=== PATIENT | male | born 1990 | race Caucasian/White ===

== ENCOUNTER 2016-09-27 17:57 | Emergency (ER) | payer MEDICAID ==
[~2016-09-27] VITALS: Ht 175.3 cm; Wt 86.0 kg
[~2016-09-27 17:57] MED LIST: ALBU18HF INHALATION; ALBU8.5H3 INH; AMOX1TAB10 PO; HYDR-3498 PO; HYDR-906 PO; IBUP-1542 PO; IBUP800T25 PO; LORA1TAB PO; ONDA8TAB14 PO; no meds taken
[2016-09-27 18:07] VITALS: Ht 175.3 cm; Wt 86.0 kg
[2016-09-27] MEDS ORDERED: CLIN-73 PO (19:10)
[2016-09-27] MEDS ORDERED: IBUP800T25 PO (19:10)
--- NOTE | 2016-09-27 19:18 | ERD ---
ER Documentation Chief Complaint Date/Time DATE: 09/27/16 TIME: 19:14 Chief Complaint LT SIDE TOOTH PAIN AND SWELLING X 3 DAYS HPI 26-year-old male with a past medical history of dental infections presents the ED complaining of the same dental infection that he has had in June 2016. States that the same #19 tooth is still decayed and has not followed up with the dentist. States that his gums started to swell up 2 days ago. States that he has been taking ibuprofen for pain. Denies any fever, chills, dysphagia, shortness of breath, wheezing, abdominal pain. States that he tried following up with a dentist however does not have insurance. ROS All systems reviewed and are negative except as per history of present illness. Medications Home Meds Active Scripts Ibuprofen* (Motrin*) 800 Mg Tab, 800 MG PO Q6, #30 TAB Prov:SANTOSH MADDOX PA-C 09/27/16 Clindamycin Hcl* (Clindamycin Hcl*) 300 Mg Capsule, 450 MG PO TID for 10 Days, CAP Prov:SANTOSH MADDOX PA-C 09/27/16 Albuterol Sulfate* (Ventolin HFA*) 18 Gm Hfa.aer.ad, 2 PUFF INHALATION Q4H, #1 INHALER Prov:CARLOS ALBERTO GRIFFIN 09/07/16 Ibuprofen* (Ibuprofen*) 600 Mg Tablet, 600 MG PO Q6 for 3 Days, TAB Prov:CARLOS ALBERTO GRIFFIN 09/07/16 Ibuprofen* (Motrin*) 600 Mg Tab, 600 MG PO Q6, #30 TAB Prov:SANTOSH MADDOX PA-C 08/22/16 Albuterol Sulfate* (Proair HFA*) 8.5 Gm Hfa.aer.ad, 2 PUFF INH Q4, #1 INHALER Prov:SANTOSH MADDOX PA-C 08/22/16 Lorazepam* (Lorazepam*) 1 Mg Tablet, 1 MG PO Q8, #10 TAB Prov:WILLIAM MCCONNELL MD 08/21/16 Ondansetron (Ondansetron Odt) 8 Mg Tab.rapdis, 8 MG PO Q6H Y for NAUSEA AND/OR VOMITING, #10 TAB Prov:WILLIAM MCCONNELL MD 08/21/16 Hydrocodone/Acetaminophen ([place] 5-325 Tablet) 1 Each Tablet, 1 TAB PO Q6H Y for PAIN, #20 TAB Prov:CARLOS ALBERTO GRIFFIN 07/01/16 Ibuprofen* (Motrin*) 600 Mg Tab, 600 MG PO Q6, #30 TAB Prov:JACOBINGRID PA-C 06/30/16 Hydrocodone/Acetaminophen ([place] 5-325 Tablet) 1 Each Tablet, 1 EACH PO Q6, #6 TAB Prov:JACOBINGRID PA-C 06/30/16 Amoxicillin/Potassium Clav (Amox-Clav 875-125 mg Tablet) 875-125 mg Tab, 1 TAB PO BID for 7 Days, #14 TAB Prov:JACOBINGRID PA-C 06/30/16 Ibuprofen* (Motrin*) 600 Mg Tab, 600 MG PO Q6, #30 TAB Prov:SANTOSH MADDOX PA-C 06/28/16 Hydrocodone Bit-Acetaminophen* ([place]augan*) 5-325 Mg Tab, 1 TAB PO Q6 Y for PAIN, # 20 TAB Prov:YOAN ARCE DO 02/20/16 Ibuprofen* (Motrin*) 800 Mg Tab, 800 MG PO Q6H Y for PAIN AND OR ELEVATED TEMP, #30 TAB Prov:YOAN ARCE DO 02/20/16 Reported Medications [no meds taken] No Conflict Check 04/21/12 Allergies Allergies: Coded Allergies: No Known Allergy (Unverified , 08/22/16) PMhx/Soc History of Surgery: No Anesthesia Reaction: No Hx Neurological Disorder: No Hx Respiratory Disorders: Yes (asthma) Hx Cardiac Disorders: No Hx Psychiatric Problems: No Hx Miscellaneous Medical Probl: No Hx Alcohol Use: Yes (social) Hx Substance Use: No Hx Tobacco Use: No Physical Exam Vitals Vital Signs Date Time Temp Pulse Resp B/P Pulse Ox O2 Delivery O2 Flow Rate FiO2 09/27/16 18:07 98.1 76 16 136/80 98 Physical Exam Const: [id number], well-nourished. In no acute distress. Head: Atraumatic, normocephalic Eyes: Normal Conjunctiva without injection. No purulent discharge. PERRL. EOMI ENT: Normal external ear. Ear canal without erythema. Tympanic membrane pearly [place] without effusion or bulging. Nasal canal clear with normal turbinates. Moist oropharynx without tonsillar exudates. Non-erythematous pharynx. Left # 19 tooth decay with slight surrounding edema. Slight left cheek edema with no erythema, hepatic streaking. Uvula midline. No drooling. No trismus. Patient is able to open and close his mouth. Neck: Full range of motion. No meningismus. No cervical lymphadenopathy. Resp: Clear to auscultation bilaterally. No wheezing, rhonchi, rales, or crackles. No accessory muscle use. No retractions. Cardio: Regular rate and rhythm. No murmurs, rubs or gallops. Abd: Soft, non tender, non distended. Normal bowel sounds. No palpable masses. No rebound tenderness. No guarding. Skin: No petechiae or rashes Back: No midline tenderness. No CVA tenderness. Ext: No cyanosis, or edema. Neur: Awake and alert. Psych: Normal Mood and Affect Procedures/MDM This is a 26-year-old male with a past medical history of dental infections presents the ED complaining of the same dental infection he had last year. Patient has not seen the dentist. Patient is afebrile nontoxic appearing. Patient has normal vital signs. Low suspicion for dental abscess. Patient does not have tenderness to palpation of tragus or mastoid. Low suspicion for otitis externa or mastoiditis. Patient's physical exam include lungs which were clear to auscultation and a normal pulse oximetry. Patient is speaking in full sentences. There is a low suspicion for pneumonia, epiglottitis, croup, viral/ strep pharyngitis, sinusitis, peritonsillar abscess, retropharyngeal abscess, meningitis, sepsis, acute abdomen, Chase's angina, or other emergent conditions. Discharge medications: Clindamycin, Ibuprofen Follow up with dentist in 1-2 days. Instructed patient to return to the ED sooner for any worsening symptoms. Patient's questions were answered. Patient understood and agreed with discharge plan. Patient discharged stable. Departure Diagnosis: Primary Impression: Chronic dental infection Condition: Stable Patient Instructions: Understanding Tooth Decay Referrals: COMM[facility]ITY [facility]INICS YOU HAVE RECEIVED A MEDICAL SCREENING EXAM AND THE RESULTS INDICATE THAT YOU DO NOT HAVE A CONDITION THAT REQUIRES URGENT TREATMENT IN THE EMERGENCY DEPARTMENT. FURTHER EVALUATION AND TREATMENT OF YOUR CONDITION CAN WAIT UNTIL YOU ARE SEEN IN YOUR DOCTORS OFFICE WITHIN THE NEXT 1-2 DAYS. IT IS YOUR RESPONSIBILITY TO MAKE AN APPOINTMENT FOR FOLOW-UP CARE. IF YOU HAVE A PRIMARY DOCTOR --you should call your primary doctor and schedule an appointment IF YOU DO NOT HAVE A PRIMARY DOCTOR YOU CAN CALL OUR PHYSICIAN REFERRAL HOTLINE AT IF YOU CAN NOT AFFORD TO SEE A PHYSICIAN YOU CAN CHOSE FROM THE FOLLOWING [facility] [address] [facility] [address] [facility] [address] [facility] [address] [facility] [address] [facility]. [facility] [address] [facility]. [facility] YOU HAVE RECEIVED A MEDICAL SCREENING EXAM AND THE RESULTS INDICATE THAT YOU DO NOT HAVE A CONDITION THAT REQUIRES URGENT TREATMENT IN THE EMERGENCY DEPARTMENT. FURTHER EVALUATION AND TREATMENT OF YOUR CONDITION CAN WAIT UNTIL YOU ARE SEEN IN YOUR DOCTORS OFFICE WITHIN THE NEXT 1-2 DAYS. IT IS YOUR RESPONSIBILITY TO MAKE AN APPOINTMENT FOR FOLOW-UP CARE. IF YOU HAVE A PRIMARY DOCTOR --you should call your primary doctor and schedule and appointment IF YOU DO NOT HAVE A PRIMARY DOCTOR YOU CAN CALL OUR PHYSICIAN REFERRAL HOTLINE AT . IF YOU CAN NOT AFFORD TO SEE A PHYSICIAN YOU CAN CHOSE FROM THE FOLLOWING [facility]: [facility] [address] [place] [address] [facility] [address] [place] [address] [facility] + [facility] [address] [place] [address] [facility] DENTIST ([facility] walk in clinic) Additional Instructions: FOLLOW UP WITH YOUR DENTIST TOMORROW. Return to this facility if you are not improving as expected. SANTOSH MADDOX PA-C Sep 27, 2016 19:18
== END 2016-09-27 19:11 | disposition home or self-care (01) ==
LOC: E/R 17:57
DX: K04.7 Periapical abscess without sinus (principal); J45.909 Unspecified asthma, uncomplicated
CPT/HCPCS: 99283

== ENCOUNTER 2018-07-04 11:50 | Emergency (ER) | END 2018-07-04 14:12 | disposition home or self-care (01) ==

== ENCOUNTER 2018-09-29 23:59 | Emergency (ER) | payer SELFPAY ==
[~2018-09-29] VITALS: Ht 180.3 cm; Wt 88.0 kg
[~2018-09-29 23:59] MED LIST changes: -ALBU8.5H3 INH; +ALBU8.5H8 INH; +CLIN300C10 PO; +HYDR-4011 PO; -HYDR-906 PO; -IBUP800T25 PO; +IBUP800T48 PO; +LORA-441 PO; +ONDA4TAB14 PO
[2018-09-30 00:20] VITALS: Ht 180.3 cm; Wt 88.0 kg
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
[2018-09-30] MEDS ORDERED: IBUP-1542 PO (04:08)
[2018-09-30] MEDS ORDERED: TRAM50TA2 PO (04:08)
[2018-09-30 04:37] VITALS: BP 126/65; PULSE 61; RESP 18
[2018-10-04] MEDS ORDERED: LORA1TAB PO (00:27)
== END 2018-09-30 04:40 | disposition home or self-care (01) ==
LOC: FTE 23:59
DX: R07.89 Other chest pain (principal); J45.909 Unspecified asthma, uncomplicated; F17.210 Nicotine dependence, cigarettes, uncomplicated
CPT/HCPCS: 71045; 93005

== ENCOUNTER 2018-09-30 23:16 | Emergency (ER) | payer SELFPAY ==
[~2018-09-30] VITALS: Ht 180.3 cm; Wt 87.4 kg
[~2018-09-30 23:16] MED LIST changes: +TRAM50TA2 PO
[2018-09-30 23:18] VITALS: BP 146/74; PULSE 61; RESP 19; Ht 180.3 cm; Wt 87.4 kg
[2018-10-04] MEDS ORDERED: LORA1TAB PO (00:27)
== END 2018-10-01 03:01 | disposition left against medical advice (07) ==
LOC: FTE 23:16
DX: Z53.21 Procedure and treatment not carried out due to patient leaving prior to being seen by health care provider (principal)

== ENCOUNTER 2019-02-24 10:06 | Emergency (ER) | payer MEDICAID ==
[~2019-02-24] VITALS: Ht 175.3 cm; Wt 88.3 kg
[2019-02-24 10:13] VITALS: BP 140/64; PULSE 89; RESP 18; Ht 175.3 cm; Wt 88.3 kg
[2019-02-24] MEDS ORDERED: DIPHTH/TET/ACEL PERTUSS (ADULT) 0.5 ML VIAL IM* ONE (11:00)
[2019-02-24] MEDS ORDERED: LIDOCAINE 1% (MPF) 5 ML VIAL INJ ONE (11:00)
[2019-02-24] MEDS ORDERED: ONDANSETRON (ODT) 4 MG TAB ODT STA (11:17)
[2019-02-24] MEDS ORDERED: NAPR-985 PO (11:19)
[2019-02-24] MEDS ORDERED: HYDR-4011 PO (11:19)
[2019-02-24] MEDS ORDERED: SULF1TAB31 PO (11:19)
[2019-02-24] MEDS ORDERED: CEPH-443 PO (11:19)
[2019-02-24] MEDS ORDERED: HYDROCODONE/APAP (5/325) TAB PO ONE (11:30)
--- NOTE | 2019-02-24 15:46 | ERD ---
ER Documentation Chief Complaint Chief Complaint lower back pain & swelling x3 days, denies injury or trauma HPI 28-year-old male presenting with swelling to his lower back. He states he has pain in the region has been going for the last few days. Denies any fevers. Denies other medical pounds. NKDA. Surgical history denies. Social history denies ROS All systems reviewed and are negative except as per history of present illness. Medications Home Meds Active Scripts Naproxen* (Naprosyn*) 500 Mg Tablet, 500 MG PO BID PRN for PAIN AND/OR INFLAMMATION, #30 TAB Prov:ETHEL BERRIOS PA-C 02/24/19 Hydrocodone/Acetaminophen ([place] 5-325 Tablet) 1 Each Tablet, 1 TAB PO Q6H PRN for PAIN, #7 TAB Prov:ETHEL BERRIOS PA-C 02/24/19 Sulfamethoxazole/Trimethoprim* (Bactrim Ds* Tablet) 1 Each Tablet, 1 TAB PO BID, #14 TAB Prov:ETHEL BERRIOS PA-C 02/24/19 Cephalexin* (Keflex*) 500 Mg Capsule, 500 MG PO QID for 7 Days, #28 CAP Prov:ETHEL BERRIOS PA-C 02/24/19 Lorazepam* (Lorazepam*) 1 Mg Tablet, 1 MG PO Q8, #10 TAB Prov:KRISHNA RIVERA PA-C 10/04/18 Tramadol HCl (Tramadol HCl) 50 Mg Tablet, 50 MG PO Q6 PRN for SEVERE PAIN LEVEL 7-10, #10 TAB Prov:MIKE GARCÍA NP 09/30/18 Ibuprofen* (Motrin*) 600 Mg Tab, 600 MG PO Q6H PRN for PAIN AND OR ELEVATED TEMP, #30 TAB Prov:MIKE GARCÍA NP 09/30/18 Ondansetron (Ondansetron Odt) 4 Mg Tab.rapdis, 4 MG PO Q6H PRN for NAUSEA AND/OR VOMITING, #20 TAB Prov:AZ GARZA DO 07/04/18 Lorazepam* (Ativan*) 0.5 Mg Tablet, 0.5 MG PO Q8H PRN for ANXIETY, #15 TAB Prov:AZ GARZA DO 07/04/18 Ibuprofen* (Motrin*) 800 Mg Tab, 800 MG PO Q6, #30 TAB Prov:SANTOSH MADDOX PA-C 09/27/16 Clindamycin Hcl* (Clindamycin Hcl*) 300 Mg Capsule, 450 MG PO TID for 10 Days, CAP Prov:SANTOSH MADDOX PA-C 09/27/16 Albuterol Sulfate* (Ventolin HFA*) 18 Gm Hfa.aer.ad, 2 PUFF INHALATION Q4H, #1 INHALER Prov:CARLOS ALBERTO GRIFFIN 09/07/16 Ibuprofen* (Ibuprofen*) 600 Mg Tablet, 600 MG PO Q6 for 3 Days, TAB Prov:CARLOS ALBERTO GRIFFIN 09/07/16 Ibuprofen* (Motrin*) 600 Mg Tab, 600 MG PO Q6, #30 TAB Prov:SANTOSH MADDOX PA-C 08/22/16 Albuterol Sulfate* (Proair HFA*) 8.5 Gm Hfa.aer.ad, 2 PUFF INH Q4, #1 INHALER Prov:SANTOSH MADDOX PA-C 08/22/16 Lorazepam* (Lorazepam*) 1 Mg Tablet, 1 MG PO Q8, #10 TAB Prov:WILLIAM MCCONNELL MD 08/21/16 Ondansetron (Ondansetron Odt) 8 Mg Tab.rapdis, 8 MG PO Q6H PRN for NAUSEA AND/OR VOMITING, #10 TAB Prov:WILLIAM MCCONNELL MD 08/21/16 Hydrocodone/Acetaminophen ([place] 5-325 Tablet) 1 Each Tablet, 1 TAB PO Q6H PRN for PAIN, #20 TAB Prov:CARLOS ALBERTO GRIFFIN 07/01/16 Ibuprofen* (Motrin*) 600 Mg Tab, 600 MG PO Q6, #30 TAB Prov:INGRID JAMES PA-C 06/30/16 Hydrocodone/Acetaminophen ([place] 5-325 Tablet) 1 Each Tablet, 1 EACH PO Q6, #6 TAB Prov:INGRID JAMES PA-C 06/30/16 Amoxicillin/Potassium Clav (Amox-Clav 875-125 mg Tablet) 875-125 mg Tab, 1 TAB PO BID for 7 Days, #14 TAB Prov:INGRID JAMES PA-C 06/30/16 Ibuprofen* (Motrin*) 600 Mg Tab, 600 MG PO Q6, #30 TAB Prov:SANTOSH MADDOX PA-C 06/28/16 Hydrocodone Bit-Acetaminophen* ([place]*) 5-325 Mg Tab, 1 TAB PO Q6 PRN for PAIN, #20 TAB Prov:YOAN ARCE DO 02/20/16 Ibuprofen* (Motrin*) 800 Mg Tab, 800 MG PO Q6H PRN for PAIN AND OR ELEVATED TEMP, #30 TAB Prov:YOAN ARCE DO 02/20/16 Reported Medications [no meds taken] No Conflict Check 04/21/12 Allergies Allergies: Coded Allergies: No Known Allergy (Unverified , 08/22/16) PMhx/Soc Medical and Surgical Hx: pt denies Medical Hx, pt denies Surgical Hx History of Surgery: No Anesthesia Reaction: No Hx Neurological Disorder: No Hx Respiratory Disorders: No Hx Cardiac Disorders: No Hx Psychiatric Problems: No Hx Miscellaneous Medical Probl: No Hx Alcohol Use: No Hx Substance Use: No Hx Tobacco Use: No Smoking Status: Never smoker FmHx Family History: No diabetes, No coronary disease, No other Physical Exam Vitals Vital Signs Date Temp Pulse Resp B/P (MAP) Pulse Ox O2 O2 Flow FiO2 Time Delivery Rate 02/24/19 98.4 89 18 140/64 98 10:13 (89) Physical Exam GENERAL: The patient is well-appearing, well-nourished, in no acute distress CHEST: Clear to auscultation bilaterally. There are no rales, wheezes or rhonchi. HEART: Regular rate and rhythm. No murmurs, clicks, rubs or gallops. No S3 or S4. EXTREMITIES: Equal pulses bilaterally. There is no peripheral clubbing, cyanosis or edema. No focal swelling or erythema. Full range of motion. SKIN: Erythema and induration noted to the gluteal cleft. No fluctuance. Indurated region is approximately 2 x 2 cm. Results 24 hrs Current Medications Medications Dose Sig/Donna Start Time Status Last (Trade) Ordered Route PRN Stop Time Admin Dose Reason Admin Lidocaine 5 ml ONCE ONCE 02/24/19 DC (Xylocaine INJ 11:00 1% (Mpf)) 02/24/19 11:01 Diphtheria/ 0.5 ml ONCE ONCE 02/24/19 DC 02/24/19 Tetanus/Acell IM* 11:00 10:49 Pertussis 02/24/19 11:01 (Adacel) 1 tab ONCE ONCE 02/24/19 DC Acetaminophen PO 11:30 / 02/24/19 11:31 Hydrocodone Bitart ([place] (5/325)) Ondansetron 4 mg ONCE STAT 02/24/19 DC HCl (Zofran ODT 11:17 Odt) 02/24/19 11:19 Procedures/MDM Abscess Incision and Drainage with irrigation by me: Location: Tylenol Anesthesia: Local 1% Lidocaine Technique: Irrigated. Disrupted loculations w/ instrumentation. No purulence removed. Packing: None Complications: Neurovascularly intact post procedure 48 hour wound check. Scar minimization instructions given. Patient's skin symptoms have stabilized while they have been evaluated in the department and are appropriate for outpatient care and work up. Exam and w/u not consistent w/ sepsis, deep space infection, or foreign body. MDM: 28-year-old male presenting with abscess. There is no purulence removed on exam. Patient is told to take antibiotics as prescribed and apply warm compresses to the region. Patient is recommended to return in 2 days as abscess is likely produce at that time and ready for incision and drainage. I have low suspicion for deep tracking abscess. I have low suspicion for sepsis. Patient is discharged with strict ER precautions and told to follow-up with primary care within 1 to 2 days for close evaluation. All questions answered at discharge Departure Diagnosis: Primary Impression: Abscess Condition: Stable Patient Instructions: Abscess, Incision And Drainage Referrals: [facility] YOU HAVE RECEIVED A MEDICAL SCREENING EXAM AND THE RESULTS INDICATE THAT YOU DO NOT HAVE A CONDITION THAT REQUIRES URGENT TREATMENT IN THE EMERGENCY DEPARTMENT. FURTHER EVALUATION AND TREATMENT OF YOUR CONDITION CAN WAIT UNTIL YOU ARE SEEN IN YOUR DOCTORS OFFICE WITHIN THE NEXT 1-2 DAYS. IT IS YOUR RESPONSIBILITY TO MAKE AN APPOINTMENT FOR FOLOW-UP CARE. IF YOU HAVE A PRIMARY DOCTOR --you should call your primary doctor and schedule an appointment IF YOU DO NOT HAVE A PRIMARY DOCTOR YOU CAN CALL OUR PHYSICIAN REFERRAL HOTLINE AT IF YOU CAN NOT AFFORD TO SEE A PHYSICIAN YOU CAN CHOSE FROM THE FOLLOWING [facility] [address] [facility]. [facility] [address] [facility] [facility] [address] [facility] [address] [facility] [address] [facility]. [facility] [address] Additional Instructions: FOLLOW UP WITH YOUR PRIMARY CARE PHYSICIAN TOMORROW.Return to this facility if you are not improving as expected. ETHEL BERRIOS PA-C Feb 24, 2019 15:46
== END 2019-02-24 11:44 | disposition home or self-care (01) ==
LOC: FTE 10:06
DX: L02.31 Cutaneous abscess of buttock (principal); Z23 Encounter for immunization
CPT/HCPCS: 10060; 90471; 90715; Z7502; Z7610